=== PATIENT | male | born 1985 | race Caucasian/White ===

== ENCOUNTER → 2020-11-24 08:48 | Outpatient (BNVA) | payer SELFPAY | PROVIDERS: Visit Provider Nurse Practitioner Family | DX: I10 Essential (primary) hypertension (principal) | CPT/HCPCS: 80053; 80061; 84443 ==

== ENCOUNTER → 2021-05-07 10:44 | Outpatient (BNVA) | payer SELFPAY | PROVIDERS: Visit Provider Surgery | DX: Z20.822 Contact with and (suspected) exposure to COVID-19 (principal); L05.01 Pilonidal cyst with abscess; L05.91 Pilonidal cyst without abscess | CPT/HCPCS: 87635 ==

== ENCOUNTER 2021-05-08 11:02 | Day surgery (SDC) | payer SELFPAY ==
[2021-05-07 14:06] VITALS: BMI 29.5
[2021-05-08] VITALS (8 sets, daily range): BP systolic 97–179; BP diastolic 46–105; PULSE 64–81; RESP 12–18; TEMP 36.2–36.6; O2SAT 95–100
[2021-05-08] MEDS: sodium chloride 0.9% 1,000 ML 30 ML IV (11:53)
[2021-05-08] MEDS: acetaminophen 1,000 MG/100 ML PIGGYBACK 400 MG IV (11:53)
--- NOTE | 2021-05-08 12:28 | ANES.PREANE2 ---
Pre-Anesthetic Assessment Height/Weight: Height 1.88 m Weight 104.326 kg Temp Pulse Resp BP Pulse Ox 97.8 F 67 14 179/105 100 05/08/21 11:33 05/08/21 11:33 05/08/21 11:33 05/08/21 11:33 05/08/21 11:33 Preop Diagnosis: Symptomatic lower back pilonidal cyst Operation Date: 05/08/21 13:05 Proposed Procedures p Pilonidal Cystectomy 35297/l05.01(Not Applicable) - Nate Zabala MD Familial anesthetic complications: None Was Beta Maximino taken within 24 hours: N/A Was Clonidine taken within 24 hours: N/A Last intake: Intake Last Liquid Date 05/07/21 Last Liquid Time 21:00 Last Solid Date 05/07/21 Last Solid Time 20:00 Social No alcohol and No tobacco Exam alert, oriented x 3, clear to auscultation bilaterally and regular rate & rhythm Airway Submandibular: within normal limits Cervical ROM: within normal limits Mallampati: Class I Dentition: full History/ROS No significant history except as noted Pulmonary None reported CV/HEM None reported None reported Hepatic None reported GI None reported Metabolic None reported Musc/skel None reported Anesthetic Plan ASA status: 1 Anesthesia: Anesthesia Evaluation, General and MAC Other: I discussed with the patient risks, goals, and benefits of MAC and general anesthesia. We discussed spectrum of MAC anesthesia including conversion to general as well as possibility of recall of intraoperative stimuli including discomfort/pain. Patient agrees to proceed vs. general pending further planning with surgeon. Risk of > 500 ml blood loss (7ml/kg in children): No Medications/Allergies Home Medications Medication Instructions Recorded Confirmed Last Taken Type sulfamethoxazole 800 1 tab PO BID 10 Days #20 tab 04/26/21 05/08/21 05/08/21 05:00 Rx mg-trimethoprim 160 mg tablet (Bactrim DS) Allergies Allergy/AdvReac Type Severity Reaction Status Date / Time No Known Allergies Allergy Verified 05/07/21 14:06 Current Medications Generic Name Dose Route Start Last Admin Trade Name Freq PRN Reason Stop Dose Admin Sodium Chloride 1,000 mls @ 30 mls/hr 05/08/21 11:30 05/08/21 11:53 Sodium Chloride 0.9% IV 05/09/21 11:29 30 mls/hr .Q24H BORIS Administration PFSH Anesthesia Social History Smoking and tobacco status: never smoked Data Anesthesia Cardiac Studies: No Data to Display
--- NOTE | 2021-05-08 13:32 | W.PM.OPSUD ---
Surgery/Procedure H&P Update DATE OF PROCEDURE: May 08, 2021 DATE H&P PERFORMED: 05/07/21 PREOP DIAGNOSIS: Symptomatic lower back pilonidal cyst PRIMARY INDICATION FOR PROCEDURE: The same PLANNED PROCEDURE: Operation Date: 05/08/21 13:05 Proposed Procedures p Pilonidal Cystectomy 85285/l05.01(Not Applicable) - Nate Zabala MD
--- NOTE | 2021-05-08 15:02 | PM.OP ---
Operative Report Date of procedure: May 08, 2021 Pre-op diagnosis: Preop Diagnosis Symptomatic lower back pilonidal cyst Post-op diagnosis: The same Procedure done: Lower back pilonidal cystectomy Semiopen technique Implants: Surgicel and Xeroform Specimens removed/disposition: Lower back pilonidal mass sutures doss Superior Surgeon: Nate Zabala MD Nutter Up: electrostatic powder coating technician Ghassan Circulating nurse Elva Garcia Anesthesia: General (GETA GRINDER OPERATOR SURFACE TOOL Manuel and Zunilda) Estimated blood loss (mL): 5 IV fluids (mL): 500 Procedure: After identifying the patient holding area,, patient was then taken to the operative suite, was placed in first in supine position, and the trach was placed by the anesthesia provider and,Time-out was done verifying the patient's name/date of /planned procedure and destination after the procedure, all were in agreement. SCDs confirmed to be functioning, preoperative antibiotics administered per protocol, and beta charleen protocol was confirmed, appropriate positioning of the patient was done by me. patient was then placed in left lateral position,Ax Roll was placed, right arm was placed in 90? to his body, all pressure points were padded and patient was appropriately secured to the bed. prep and drape of the lower back region was done under the usual sterile technique. After introduction of a lacrimal probe ,elliptical skin incision was done including multiple pits of the anal cleft as well as the previous wound(to the left of the midline) of the previous incision and drainage site,incision was done all the way down to the subcutaneous tissues and periosteal covering the coccyx, dissection was then carried on , pilonidal mass all excised en toto , the mass was oriented by 3-0 nylon sutures in the form of short superior, then passed to the circulating nurse for permanent pathology. Wound measurements after excision of the pilonidal mass 8.5 x 4 x [address] to the fascia and periosteum Sharp debridement of the wound cavity to remove any residual of unhealthy granulation tissues .Hemostasis was then achieved using Bovie cautery, followed by irrigation with normal saline, 2-0 Vicryl were used as an interrupted sutures, bites were taken from the subdermal level to the periosteum and tied down to make the wound gap more shallow to help healing postoperatively and make the packing easier on the patient, suturing was done in an interrupted circumferential fashion . wound was then packed by Surgicel/Xeroform and dry 4 x 4 followed by ABDs and tape/surgical pants. Count was completed at the end of the procedure Patient was taken to the recovery room in stable condition after extubation I was present for the whole entire procedur
[2021-05-08] MEDS: ketorolac 30 mg/mL INJ 15 MG IVP (15:08)
--- NOTE | 2021-05-08 16:06 | ANE.PACU2 ---
Inpatient post-anesthesia follow up: Airway intact: Yes Vital signs: Temperature 97.2 F Pulse Rate 78 Respiratory Rate 18 Blood Pressure 147/90 Pulse Oximetry 95 Oxygen Delivery Me thod Room Air Oxygen Flow Rate 6 Fraction of Inspir ed Oxygen Hydration adequate: Yes Nausea and vomiting: No Pain level: 1 Mental status: Baseline
== END 2021-05-08 16:23 | disposition home or self-care (01) ==
PROVIDERS: Visit Provider Surgery
PROC: (CPT 11771; principal; 2021-05-08 12:55)
DX: L05.91 Pilonidal cyst without abscess (principal)
CPT/HCPCS: 11771; 88304; J0330; J0690; J1100; J1885; J2405; J2704; J3010; J3490; J7030

== ENCOUNTER 2021-05-09 08:47 | Emergency (ER) | payer SELFPAY ==
[2021-05-09 08:56] VITALS: BP 143/69; PULSE 70; RESP 18; TEMP 37.1; O2SAT 100; BMI 29.5
--- NOTE | 2021-05-09 09:03 | ED_ITS ---
HPI - General Adult General: Chief complaint: Wound/Laceration Stated complaint: Postsurgery, nonstop bleed Time Seen by Provider: 05/09/21 08:57 Source: patient Mode of arrival: ambulatory Limitations: no limitations History of Present Illness: 35-year-old male presents emergency room with a bleeding from surgery site yesterday. He had a pilonidal cyst excised. He has had bleeding throughout the night and is caked blood clots in his clothing and dressing. He denies any fever or chills. Onset (ago): hour(s) Location: buttocks Severity: moderate Quality: sharp Pain Consistency: constant Relieving factors: none Exacerbating factors: none Associated symptoms: Deny chest pain, confusion, cough, diaphoresis, decreased appetite, dyspnea, fevers/chills, headache(s), malaise, nausea, rash, palpitations, seizures, short of breath, syncope, vomiting or weakness Treatments prior to arrival: none Review of Systems Const: Denies: malaise or diaphoresis ENMT: Denies: throat pain, ear or mastoid pain, nasal discharge or nasal congestion Card: Denies: chest pain, palpitations or syncope Resp: Denies: dyspnea GI: Denies: nausea or vomiting : Denies: flank pain, dysuria, urinary frequency or urinary urgency Skin/Breast: Denies: rash Neuro: Denies: headache(s) or confusion PFS ED PFSH: Medical History Pilonidal cyst of [place] cleft Social History Smoking and tobacco status: never smoked Physical Exam Const: COMMON NORMALS: no acute distress GENERAL APPEARANCE: cooperative and comfortable ORIENTATION/CONSCIOUSNESS: Yes awake, Yes oriented to person, Yes oriented to place and Yes oriented to time HENMT: COMMON NORMALS: normocephalic, atraumatic and hearing grossly normal bilaterally HEAD & SCALP: normocephalic and atraumatic Neck/C-Spine: COMMON NORMALS: no JVD Resp: COMMON NORMALS: normal respiratory effort, No retractions, No use of accessory muscles and clear to auscultation bilaterally AUSCULTATION: clear to auscultation bilaterally Cardio: COMMON NORMALS: no JVD, regular rate, regular rhythm and No murmurs present (Cardio) RATE: regular rate RHYTHM: regular rhythm GI: COMMON NORMALS: Soft to palpation and No hepatosplenomegaly present AUSCULTATION: Yes normoactive bowel sounds PALPATION: Yes Soft to palpation, No Tenderness to palpation present (GI), No Guarding due to palpation present (GI) and Yes No hepatosplenomegaly present Back/Pelvis: OTHER: Mild gaping of the wound above the gluteal cleft small amount of bleeding noted after clearing away large amount of clots that were present. Patient's clothing and the dressing were soaked and caked with large amounts of clots that were scooped off and discarded. No erythema no induration no sign of infection. Extremity: COMMON NORMALS: normal to inspection, capillary refill normal, no clubbing, cyanosis or edema, no calf tenderness and no pedal edema Neuro: SENSORIUM/ORIENTATION: Yes oriented to person, Yes oriented to place and Yes oriented to time Skin: COMMON NORMALS: no rashes or lesions noted GENERAL SKIN EXAM: no rashes or lesions noted Course Vital Signs: Vital signs: Vital Signs Temperature 98.7 F 05/09/21 09:06 Pulse Rate 72 05/09/21 10:57 Respiratory Rate 16 05/09/21 10:57 Blood Pressure 140/62 05/09/21 10:57 Pulse Oximetry 100 05/09/21 10:57 [facility] - General Adult Medical Decision Making Dr. Zabala contacted he came and seen the patient in the emergency room applied suture to stop bleeding and gave instructions for wound care. Will discharge patient home on Augmentin Dr. Zabala to follow-up in the office tomorrow. Medical Records I reviewed the patient's medical records. Lab Data I reviewed the patient's lab results. : 05/09/21 10:12 05/09/21 10:12 Laboratory Results WBC 15.4 10^3/uL (4.0-10.0) H 05/09/21 10:12 Corrected WBC Cancelled 05/09/21 09:27 RBC 4.62 10^6/uL (4.1-5.3) 05/09/21 10:12 Hgb 14.6 g/dL (11.7-16.6) 05/09/21 10:12 Hct 44.2 % (42.0-52.0) 05/09/21 10:12 MCV 95.7 fl (80-94) H 05/09/21 10:12 MCH 31.6 pg (28.0-34.0) 05/09/21 10:12 MCHC 33.0 g/dL (30.0-36.0) 05/09/21 10:12 RDW 12.6 % (12.1-15.1) 05/09/21 10:12 Plt Count 403 10^3/cmm (130-400) H 05/09/21 10:12 MPV 9.6 fL (7.4-10.4) 05/09/21 10:12 Gran % Cancelled 05/09/21 09:27 Neut % (Auto) 78.8 % 05/09/21 10:12 Lymph % (Auto) 13.3 % 05/09/21 10:12 [place] % (Auto) 7.3 % 05/09/21 10:12 Eos % (Auto) 0.0 % 05/09/21 10:12 Baso % (Auto) 0.1 % 05/09/21 10:12 Neut # (Auto) 12.12 10^3/uL (1.8-7.7) H 05/09/21 10:12 Lymph # (Auto) 2.1 10^3/uL (0.8-4.8) 05/09/21 10:12 [place] # (Auto) 1.1 10^3/uL (0.2-0.9) H 05/09/21 10:12 Eos # (Auto) 0.0 10^3/uL (0.0-0.8) 05/09/21 10:12 Baso # (Auto) 0.0 10^3/uL (0.0-0.1) 05/09/21 10:12 Absolute Gran (auto) Cancelled 05/09/21 09:27 Nucleated RBC % (auto) 0 % 05/09/21 10:12 Nucleated RBCs # 0.0 /100WBC 05/09/21 10:12 PT 13.50 SECONDS (12.1-14.9) 05/09/21 10:12 INR 1.00 (0.8-1.2) 05/09/21 10:12 APTT 25.6 SECONDS (23.9-36.7) 05/09/21 10:12 Sodium 138 mmol/L (136-145) 05/09/21 10:12 Potassium 4.2 mmol/L (3.5-5.1) 05/09/21 10:12 Chloride 103 mmol/L (98-107) 05/09/21 10:12 Carbon Dioxide 25 mmol/L (22-29) 05/09/21 10:12 Anion Gap 14.2 (5-19) 05/09/21 10:12 BUN 12 mg/dL (6-20) 05/09/21 10:12 Creatinine 0.6 mg/dL (0.7-1.2) L 05/09/21 10:12 GFR Calculation 151.6 mL/min (90-130) H 05/09/21 10:12 Glucose 96 mg/dL (65-115) 05/09/21 10:12 Calculated Osmolality 286 mOsm/kg (285-295) 05/09/21 10:12 Calcium 9.4 mg/dL (8.5-10.5) 05/09/21 10:12 Discharge Plan Discharge Patient Disposition: Home Clinical Impression: Pilonidal cyst of cleft, Postoperative hemorrhage from incision Condition: Stable Prescriptions: New Augmentin 875-125 mg tablet 1 tab PO BID Qty: 14 0RF No Action ketorolac 10 mg tablet 10 mg PO Q6H PRN (Reason: pain) 5 Days 0RF omeprazole 20 mg capsule,delayed release(DR/EC) 20 mg PO BID 10 Days Qty: 20 0RF Discharge Orders: Discharge ED (Routine); Ordered 05/09/21 Ordered By: Matt Armas Discharge Diet: Usual diet Discharge Activity: Limit activity as instructed Activity Restrictions/Additional Instructions: Follow-up with Dr. Zabala tomorrow in his office. Return if bleeding recurs. Avoid pressure over the incision site with prolonged sitting or shifting with pressure over the incision while sitting. Coding Level of Care Code ED Chief [employer] for Chg Fwd Exam Comprehensive
[2021-05-09 09:06] VITALS: BP 143/69; PULSE 70; RESP 18; TEMP 37.1; O2SAT 100
--- NOTE | 2021-05-09 09:46 | PM.PN ---
Subjective Subjective: This is a pleasant 35 years old gentleman status post lower back pilonidal cystectomy done by me yesterday in the afternoon. Patient was discharged safely and apparently he did develop a large hematoma and bled some from the wound,subsequently came to the emergency department for further evaluation and work up. The blood witnessed on his underwear's and clothes was considerable. Patient did not lose conscious and further evaluation in the ER showed the wound bed is clean and I was contacted for further evaluation. Patient maintained to have stable vital signs and a prescription of Toradol was sent to the patient but apparently he did not fill it yet he did receive a 15 mg IV after surgery whether or not contributed to his bleeding but subsequent evaluation took place in the ER by me and was found to have minimal oozing at the wound edge particularly towards the right side and [id number] 3-0 Vicryl were applied under sterile technique bedside using local anesthesia. In the presence of nursing staff Kelly. Appropriate hemostasis was achieved and the wound was cleansed with sterile saline followed by Surgicel Xeroform and secondary dressing. Recommended at this point to have the patient on Tylenol as needed and not to have the Toradol to minimize potential risk of bleeding and will have the patient follow-up with me in the office tomorrow Lab work was sent but was not available upon evaluation of the patient. The blood work showed WBC count of 15.4 likely reactive, hemoglobin 14.6, hematocrit 44.2 and platelet count 403, PT 13.5, INR is 1, APTT 25.6. Sodium 138, potassium 4.2, creatinine 0.6. Medications: Reviewed: Yes Vitals/I&O/Wt Last Vital Signs Temp 98.7 F 05/09/21 09:06 Pulse 70 05/09/21 09:06 Resp 18 05/09/21 09:06 BP 143/69 05/09/21 09:06 Pulse Ox 100 05/09/21 09:06 Weight last 48 hrs Weight 230 lb Physical Exam Narrative: Patient is conscious alert oriented X3 Stable vital signs. No apparent distress BMI 29.5 Head and neck examination PERRLA no masses no cervical lymphadenopathy no jaundice Wound bed is clean and there was a small clot towards the right side of the wound that was rinsed and cleaned and underneath there was some oozing. [id number] 3-0 Vicryl was taken to stop the bleeding. There was no more active bleeding. Data : 05/09/21 10:12 05/09/21 10:12 A&P Assessment and plan (1) Postoperative hemorrhage from incision: Assessment 35 years old gentleman status post pilonidal cystectomy 05/08/2021 presented to the emergency department with postoperative bleed Plan DC Toradol Advance diet as tolerated Tylenol as needed [id number] for pain given the fact that the patient has history of drug dependency Packing of the wound as educated daily Return to surgery office tomorrow in the afternoon for postop check We will place the patient on Augmentin 875 mg twice daily for potential coverage as an empiric therapy Assurance and education All questions have been answered and all concerns have been addressed to patient's satisfaction. Status: Acute Attestations Medical Necessity Statement*: Outpatient in a bed Coding Level of Care Code Acute Machine Silver Stripper for Deep Hodges Diagnoses Postoperative hemorrhage from incision
--- NOTE | 2021-05-09 09:56 | PC.NURSE ---
INCISION SITE CLEANED, OLD DRESSING REMOVED. SEVERAL CLOTS NOTED UPON REMOVAL. DR VALENTINO PRESENT TO SEE INCISION SITE. DR VALENTINO PLACED 2 FIGURE 8 STITCHES, SURGICELL, XEROFORM, AND ABD PADS PLACED. WOUND COVERED.
[2021-05-09 10:27] LABS: Basophils % 0.1 %; Hematocrit 44.2 % (42.0-52.0); Hemoglobin 14.6 g/dL (11.7-16.6); Lymphocytes # 2.1 10^3/uL (0.8-4.8); Lymphocytes % 13.3 %; Mean Corpuscular Hemoglobin 31.6 pg (28.0-34.0); Mean Corpuscular Volume 95.7 fl (80-94); Mean Platelet Volume 9.6 fL (7.4-10.4); Monocytes # 1.1 10^3/uL (0.2-0.9); Monocytes % 7.3 %; Neutrophils # 12.12 10^3/uL (1.8-7.7); Neutrophils % 78.8 %; Nucleated Red Blood Cells % 0 %; Platelet Count 403 10^3/cmm (130-400); Red Blood Count 4.62 10^6/uL (4.1-5.3); Red Cell Distribution Width 12.6 % (12.1-15.1); White Blood Count 15.4 10^3/uL (4.0-10.0)
[2021-05-09 10:34] LABS: Partial Thromboplastin Time 25.6 SECONDS (23.9-36.7)
[2021-05-09 10:57] VITALS: BP 140/62; PULSE 72; RESP 16; O2SAT 100
[2021-05-09 11:01] LABS: Anion Gap 14.2 (5-19); Blood Urea Nitrogen 12 mg/dL (6-20); Calcium 9.4 mg/dL (8.5-10.5); Carbon Dioxide 25 mmol/L (22-29); Chloride 103 mmol/L (98-107); Glomerular Filtration Rate 151.6 mL/min (90-130); Glucose 96 mg/dL (65-115); Osmolality Calculated 286 mOsm/kg (285-295); Potassium 4.2 mmol/L (3.5-5.1); Sodium 138 mmol/L (136-145)
== END 2021-05-09 10:55 | disposition home or self-care (01) ==
PROVIDERS: Emergency Provider Family Medicine
DX: L05.91 Pilonidal cyst without abscess (principal); L76.22 Postprocedural hemorrhage of skin and subcutaneous tissue following other procedure
CPT/HCPCS: 80048; 85025; 85610; 85730; 99283